=== PATIENT | female | born 1995 | race Caucasian/White ===

== ENCOUNTER 2018-09-20 03:36 | Inpatient (IN) | payer OTHER ==
[2018-09-20] MEDS ORDERED: ACETAMINOPHEN 325 MG TAB PO (04:30)
[2018-09-20] MEDS ORDERED: LOPERAMIDE 2 MG CAP PO (04:30)
[2018-09-20 05:23] LABS: ADD MAN DIFF? NO
[2018-09-20] MEDS: PANTOPRAZOLE 40 MG INJ IV ×2 (05:28→17:55)
[2018-09-20] MEDS: ONDANSETRON 4 MG INJ IV (05:29)
[2018-09-20] MEDS: DEXTROSE 5%-0.45% NACL 1,000 ML IV ×3 (05:31→22:07)
[2018-09-20 05:32] LABS: WHITE BLOOD COUNT 16.1 10^3/ul (4.8-10.8)
[2018-09-20 05:32] LABS: BASOPHILS % 0.2 % (0.0-2.0); EOSINOPHILS % 0.1 % (0.0-7.0); HEMATOCRIT 38.7 % (37.0-47.0); HEMOGLOBIN 12.7 g/dl (12.0-16.0); LYMPHOCYTES # 2.4 10^3/ul (0.8-2.9); MEAN CORPUSCULAR HEMOGLOBIN 28.3 pg (29.0-33.0); MEAN CORPUSCULAR HGB CONC 32.8 g/dl (32.0-37.0); MEAN CORPUSCULAR VOLUME 86.4 fl (82.0-101.0); MEAN PLATELET VOLUME 11.3 fl (7.4-10.4); MONOCYTES % 6.3 % (0.0-11.0); NEUTROPHIL # 12.5 10^3/ul (1.6-7.5); NEUTROPHILS % 77.5 % (39.0-77.0); PLATELET COUNT 338 10^3/UL (140-415); RED BLOOD COUNT 4.48 10^6/ul (4.20-5.40); RED CELL DISTRIBUTION WIDTH 12.7 % (11.5-14.5)
[2018-09-20 06:00] LABS: ALANINE AMINOTRANSFERASE 19 IU/L (13-69); ALBUMIN 4.3 g/dl (3.3-4.9); ALBUMIN/GLOBULIN RATIO 1.38; ALKALINE PHOSPHATASE 71 IU/L (42-121); ANION GAP 12 (5-13); ASPARTATE AMINO TRANSFERASE 17 IU/L (15-46); BILIRUBIN,INDIRECT 0.4 mg/dl (0-1.1); BILIRUBIN,TOTAL 0.4 mg/dl (0.2-1.3); BLOOD UREA NITROGEN 12 mg/dl (7-20); CALCIUM 9.9 mg/dl (8.4-10.2); CARBON DIOXIDE 27 mmol/L (21-31); CHLORIDE 103 mmol/L (97-110); CREATININE 0.65 mg/dl (0.44-1.00); Estimated GFR > 60 mL/min (>60); GLUCOSE 112 mg/dl (70-220); POTASSIUM 4.2 mmol/L (3.5-5.1); SODIUM 142 mmol/L (135-144); TOTAL PROTEIN 7.4 g/dl (6.1-8.1)
[2018-09-20] MEDS: METOCLOPRAMIDE 10 MG INJ IV ×2 (09:51→22:07)
[2018-09-20] MEDS: CEFTRIAXONE 1 GM/50 ML (PMX) 50 ML IVPB (13:31)
[2018-09-20] MEDS: PROMETHAZINE 25 MG TAB PO (13:44)
[2018-09-20 15:11] LABS: ADD UMIC YES; UR ASCORBIC ACID NEGATIVE (NEGATIVE); UR BACTERIA FEW /HPF (NONE SEEN); UR BILIRUBIN (Dip) NEGATIVE (NEGATIVE); UR BLOOD (Dip) 3+ mg/dL (NEGATIVE); UR CLARITY CLEAR (CLEAR); UR COLOR COLORLESS (YELLOW); UR GLUCOSE (Dip) NEGATIVE (NEGATIVE); UR KETONES (Dip) NEGATIVE (NEGATIVE); UR LEUKOCYTE ESTERASE (Dip) NEGATIVE Leu/ul (NEGATIVE); UR NITRITE (Dip) NEGATIVE (NEGATIVE); UR RBC 0 /HPF (0-5); UR SPECIFIC GRAVITY (Dip) 1.001 (1.003-1.030); UR TOTAL PROTEIN (Dip) NEGATIVE (NEGATIVE); UR UROBILINOGEN (Dip) NEGATIVE (NEGATIVE); UR WBC 0 /HPF (0-5)
[2018-09-20] MEDS: PROPOFOL 20 ML (15:21)
[2018-09-20] MEDS: ATROPINE 1 MG/10 ML SYRINGE (15:39)
[2018-09-20 15:43] LABS: AMPHETAMINE/METHAMPHETAMINE NEGATIVE (NEGATIVE); BARBITURATES NEGATIVE (NEGATIVE); BENZODIAZEPINES NEGATIVE (NEGATIVE); CANNABINOIDS POSITIVE (NEGATIVE); COCAINE NEGATIVE (NEGATIVE); OPIATES NEGATIVE (NEGATIVE)
[2018-09-20] MEDS: METOCLOPRAMIDE 10 MG INJ (16:02)
[2018-09-20] MEDS ORDERED: EPHEDrine SULFATE 50 MG/5 ML SYG IV (16:30)
[2018-09-20] MEDS ORDERED: MIDAZOLAM 1 MG/ML 2 ML INJ IV (16:30)
[2018-09-20] MEDS ORDERED: MEPERIDINE 25 MG INJ IV (16:30)
[2018-09-20] MEDS ORDERED: DIPHENHYDRAMINE 50 MG INJ IV (16:30)
[2018-09-20] MEDS ORDERED: ONDANSETRON 4 MG INJ IV (16:30)
[2018-09-20] MEDS ORDERED: METOCLOPRAMIDE 10 MG INJ IV (16:30)
[2018-09-20] MEDS ORDERED: OXYCODONE/ACETAMINOPHEN (5/325) TAB PO ×2 (16:30)
[2018-09-20] MEDS ORDERED: hydrALAzine 20 MG INJ IV (16:30)
[2018-09-20] MEDS ORDERED: LABETALOL HCL 20MG INJ IV (16:30)
[2018-09-20] MEDS ORDERED: FENTAnyl 50 MCG/ML VIAL IV ×3 (16:30)
[2018-09-20] MEDS ORDERED: PANTOPRAZOLE 40 MG INJ IV (18:00)
[2018-09-20] MEDS: LORAZEPAM 2 MG INJ IV (22:15)
[2018-09-21] MEDS: METOCLOPRAMIDE 10 MG INJ IV ×4 (04:33→21:09)
[2018-09-21] MEDS: PANTOPRAZOLE 40 MG INJ IV (04:33)
[2018-09-21] MEDS: ONDANSETRON 4 MG INJ IV (04:33)
[2018-09-21 06:27] LABS: ADD MAN DIFF? NO
[2018-09-21 06:29] LABS: WHITE BLOOD COUNT 12.3 10^3/ul (4.8-10.8)
[2018-09-21 06:29] LABS: BASOPHIL # 0.1 10^3/ul (0.0-0.1); BASOPHILS % 0.4 % (0.0-2.0); EOSINOPHILS # 0.1 10^3/ul (0.0-0.5); EOSINOPHILS % 0.4 % (0.0-7.0); HEMATOCRIT 39.3 % (37.0-47.0); HEMOGLOBIN 13.2 g/dl (12.0-16.0); LYMPHOCYTES # 2.5 10^3/ul (0.8-2.9); LYMPHOCYTES % 20.3 % (15.0-51.0); MEAN CORPUSCULAR HEMOGLOBIN 28.8 pg (29.0-33.0); MEAN CORPUSCULAR HGB CONC 33.6 g/dl (32.0-37.0); MEAN CORPUSCULAR VOLUME 85.6 fl (82.0-101.0); MEAN PLATELET VOLUME 11.2 fl (7.4-10.4); MONOCYTE # 0.9 10^3/ul (0.3-0.9); MONOCYTES % 7.6 % (0.0-11.0); NEUTROPHIL # 8.7 10^3/ul (1.6-7.5); NEUTROPHILS % 70.5 % (39.0-77.0); PLATELET COUNT 329 10^3/UL (140-415); RED BLOOD COUNT 4.59 10^6/ul (4.20-5.40); RED CELL DISTRIBUTION WIDTH 12.8 % (11.5-14.5)
[2018-09-21 07:05] LABS: C-REACTIVE PROTEIN < 0.5 mg/dl (0.0-0.9)
[2018-09-21 07:51] LABS: ERYTHROCYTE SEDIMENTATION RATE 20 mm/Hr (0-20)
[2018-09-21] MEDS ORDERED: HYOSCYAMINE 0.125 MG SUBL TAB PO (12:00)
[2018-09-21] MEDS: CEFTRIAXONE 1 GM/50 ML (PMX) 50 ML IVPB (13:34)
[2018-09-21] MEDS: DEXTROSE 5%-0.45% NACL 1,000 ML IV (20:30)
[2018-09-22] MEDS: METOCLOPRAMIDE 10 MG INJ IV ×4 (03:27→20:48)
[2018-09-22] MEDS: LORAZEPAM 2 MG INJ IV ×2 (05:43→15:12)
[2018-09-22] MEDS: DEXTROSE 5%-0.45% NACL 1,000 ML IV ×2 (05:47→23:36)
[2018-09-22] MEDS: PANTOPRAZOLE 40 MG INJ IV (08:25)
[2018-09-22] MEDS: morphine 2 MG INJ IV (10:47)
[2018-09-22] MEDS: ONDANSETRON 4 MG INJ IV (10:53)
[2018-09-22] MEDS: CEFTRIAXONE 1 GM/50 ML (PMX) 50 ML IVPB (13:44)
[2018-09-22] MEDS: VANCOMYCIN HCL 250 MG/5ML POSYG PO ×3 (15:11→23:35)
[2018-09-23] MEDS: METOCLOPRAMIDE 10 MG INJ IV ×2 (03:15→09:03)
[2018-09-23] MEDS: VANCOMYCIN HCL 250 MG/5ML POSYG PO (06:03)
[2018-09-23 06:12] LABS: ADD MAN DIFF? NO
[2018-09-23 06:18] LABS: WHITE BLOOD COUNT 11.7 10^3/ul (4.8-10.8)
[2018-09-23 06:18] LABS: BASOPHIL # 0.1 10^3/ul (0.0-0.1); BASOPHILS % 0.5 % (0.0-2.0); EOSINOPHILS # 0.4 10^3/ul (0.0-0.5); EOSINOPHILS % 3.4 % (0.0-7.0); HEMATOCRIT 38.9 % (37.0-47.0); HEMOGLOBIN 12.8 g/dl (12.0-16.0); LYMPHOCYTES % 25.8 % (15.0-51.0); MEAN CORPUSCULAR HEMOGLOBIN 28.5 pg (29.0-33.0); MEAN CORPUSCULAR HGB CONC 32.9 g/dl (32.0-37.0); MEAN CORPUSCULAR VOLUME 86.6 fl (82.0-101.0); MEAN PLATELET VOLUME 11.4 fl (7.4-10.4); MONOCYTE # 0.9 10^3/ul (0.3-0.9); MONOCYTES % 7.9 % (0.0-11.0); NEUTROPHIL # 7.2 10^3/ul (1.6-7.5); NEUTROPHILS % 61.8 % (39.0-77.0); PLATELET COUNT 283 10^3/UL (140-415); RED BLOOD COUNT 4.49 10^6/ul (4.20-5.40); RED CELL DISTRIBUTION WIDTH 12.5 % (11.5-14.5)
[2018-09-23 06:37] LABS: ANION GAP 9 (5-13); BLOOD UREA NITROGEN 7 mg/dl (7-20); CALCIUM 9.4 mg/dl (8.4-10.2); CARBON DIOXIDE 30 mmol/L (21-31); CHLORIDE 103 mmol/L (97-110); CREATININE 0.84 mg/dl (0.44-1.00); Estimated GFR > 60 mL/min (>60); GLUCOSE 107 mg/dl (70-220); SODIUM 142 mmol/L (135-144)
[2018-09-23 06:48] LABS: MAGNESIUM 2.1 mg/dl (1.7-2.5)
[2018-09-23 06:48] LABS: PHOSPHORUS 4.2 mg/dl (2.5-4.9)
[2018-09-23] MEDS: PANTOPRAZOLE 40 MG INJ IV (09:03)
== END 2018-09-23 13:07 | disposition left against medical advice (07) | DRG 392 ==
LOC: 2NE 03:36 → 5EC 20:20
PROC: 0DB68ZX Excision of Stomach, Via Natural or Artificial Opening Endoscopic, Diagnostic (ICD-10-PCS; principal; 2018-09-20 15:00)
DX: K52.9 Noninfective gastroenteritis and colitis, unspecified (principal); R11.2 Nausea with vomiting, unspecified; F12.988 Cannabis use, unspecified with other cannabis-induced disorder; F32.9 Major depressive disorder, single episode, unspecified; T40.7X5A Adverse effect of cannabis (derivatives), initial encounter; E66.9 Obesity, unspecified; Z68.35 Body mass index [BMI] 35.0-35.9, adult
CPT/HCPCS: 80048; 80053; 80307; 81001; 83735; 84100; 84703; 85025; 85651; 86140; 86674; 87045; 87075; 87177; 88305; 88312

== ENCOUNTER 2018-10-06 20:55 | Emergency (ER) | payer OTHER ==
[2018-10-06] MEDS: SOD CHLORIDE 0.9% 1,000 ML IV ×2 (22:44→23:46)
[2018-10-06] MEDS: ONDANSETRON 4 MG INJ IV (22:50)
[2018-10-06] MEDS: METOCLOPRAMIDE 10 MG INJ IV (22:51)
[2018-10-06 22:54] LABS: ADD MAN DIFF? NO
[2018-10-06 22:55] LABS: WHITE BLOOD COUNT 17.6 10^3/ul (4.8-10.8)
[2018-10-06 22:55] LABS: BASOPHIL # 0.1 10^3/ul (0.0-0.1); BASOPHILS % 0.4 % (0.0-2.0); EOSINOPHILS % 0.2 % (0.0-7.0); HEMATOCRIT 43.9 % (37.0-47.0); HEMOGLOBIN 14.3 g/dl (12.0-16.0); LYMPHOCYTES # 1.4 10^3/ul (0.8-2.9); LYMPHOCYTES % 8.1 % (15.0-51.0); MEAN CORPUSCULAR HEMOGLOBIN 28.1 pg (29.0-33.0); MEAN CORPUSCULAR HGB CONC 32.6 g/dl (32.0-37.0); MEAN CORPUSCULAR VOLUME 86.2 fl (82.0-101.0); MEAN PLATELET VOLUME 10.6 fl (7.4-10.4); MONOCYTE # 0.4 10^3/ul (0.3-0.9); MONOCYTES % 2.1 % (0.0-11.0); NEUTROPHIL # 15.5 10^3/ul (1.6-7.5); NEUTROPHILS % 88.2 % (39.0-77.0); PLATELET COUNT 357 10^3/UL (140-415); RED BLOOD COUNT 5.09 10^6/ul (4.20-5.40)
[2018-10-06 23:11] LABS: ADD UMIC YES; UR ASCORBIC ACID 40 mg/dL (NEGATIVE); UR BACTERIA FEW /HPF (NONE SEEN); UR BILIRUBIN (Dip) NEGATIVE (NEGATIVE); UR BLOOD (Dip) 3+ mg/dL (NEGATIVE); UR CALCIUM OXALATE CRYSTAL MODERATE /HPF (NONE SEEN); UR CLARITY CLOUDY (CLEAR); UR COLOR YELLOW (YELLOW); UR GLUCOSE (Dip) NEGATIVE (NEGATIVE); UR KETONES (Dip) TRACE mg/dL (NEGATIVE); UR LEUKOCYTE ESTERASE (Dip) NEGATIVE Leu/ul (NEGATIVE); UR MUCUS MANY /HPF (NONE SEEN); UR NITRITE (Dip) NEGATIVE (NEGATIVE); UR RBC > 182 /HPF (0-5); UR SPECIFIC GRAVITY (Dip) 1.026 (1.003-1.030); UR SQUAMOUS EPITHELIAL CELL MODERATE /HPF (FEW); UR TOTAL PROTEIN (Dip) 1+ mg/dl (NEGATIVE); UR UROBILINOGEN (Dip) NEGATIVE (NEGATIVE); UR WBC 8 /HPF (0-5)
[2018-10-06] MEDS: SOD CHLORIDE 0.9% 100 ML (23:16)
[2018-10-06] MEDS: IOHEXOL 300MG/ML 150 ML BTL (23:16)
[2018-10-06 23:27] LABS: ALANINE AMINOTRANSFERASE 16 IU/L (13-69); ALBUMIN 4.7 g/dl (3.3-4.9); ALKALINE PHOSPHATASE 95 IU/L (42-121); ASPARTATE AMINO TRANSFERASE 19 IU/L (15-46); BILIRUBIN,INDIRECT 0.2 mg/dl (0-1.1); BILIRUBIN,TOTAL 0.2 mg/dl (0.2-1.3); BLOOD UREA NITROGEN 10 mg/dl (7-20); CARBON DIOXIDE 24 mmol/L (21-31); CHLORIDE 107 mmol/L (97-110); Estimated GFR > 60 mL/min (>60); GLUCOSE 157 mg/dl (70-220); LIPASE 55 U/L (23-300); POTASSIUM 4.2 mmol/L (3.5-5.1); TOTAL PROTEIN 8.3 g/dl (6.1-8.1)
[2018-10-06 23:38] LABS: TROPONIN-I < 0.012 ng/ml (0.000-0.120)
[2018-10-06] MEDS: SCOPOLAMINE 1.5 MG PATCH TRANSDERM (23:46)
[2018-10-07] LABS: ANION GAP 15 (5-13); SODIUM 146 mmol/L (135-144)
[2018-10-07] MEDS: LORAZEPAM 2 MG INJ IV ×2 (00:27→07:23)
[2018-10-07] MEDS: SOD CHLORIDE 0.9% 1,000 ML IV (00:29)
[2018-10-07] MEDS: PROCHLORPERAZINE 5 MG TAB PO (01:06)
[2018-10-07 02:02] LABS: LACTIC ACID 3.4 mmol/L (0.5-2.0)
[2018-10-07] MEDS ORDERED: ACETAMINOPHEN 325 MG TAB PO (04:30)
[2018-10-07] MEDS ORDERED: ONDANSETRON 4 MG INJ IV (04:30)
[2018-10-07] MEDS: METOCLOPRAMIDE 10 MG INJ IV (07:23)
[2018-10-07] MEDS: HALOPERIDOL 5 MG INJ IV (10:34)
== END 2018-10-07 11:36 | disposition home or self-care (01) ==
LOC: FTE 20:55 → E/R 10-07 11:36
DX: D72.829 Elevated white blood cell count, unspecified (principal); R19.7 Diarrhea, unspecified
CPT/HCPCS: 36415; 74177; 80053; 81001; 81025; 83605; 83690; 84484; 85025; 87045; 87400; 93005; 96374; 96375; 96376; 99285-25

== ENCOUNTER 2018-11-29 00:18 | Emergency (ER) | payer OTHER ==
[2018-11-29] MEDS ORDERED: ONDANSETRON 4 MG INJ IV (01:30)
[2018-11-29] MEDS ORDERED: ACETAMINOPHEN 325 MG TAB PO (01:30)
[2018-11-29] MEDS: LORAZEPAM 2 MG INJ IV (05:36)
== END 2018-11-29 08:36 | disposition left against medical advice (07) ==
LOC: E/R 00:18
DX: R11.2 Nausea with vomiting, unspecified (principal); E66.9 Obesity, unspecified; Z68.38 Body mass index [BMI] 38.0-38.9, adult
CPT/HCPCS: 96374; 99284-25